=== PATIENT | female | born 1930 | race Caucasian/White ===

== ENCOUNTER 2017-08-27 08:32 | Inpatient (IN) ==
[2017-08-27] MEDS ORDERED: fentaNYL 100 MCG/2 ML VIAL IV PRN (08:58)
[2017-08-27] MEDS ORDERED: FUROSEMIDE 20 MG/2 ML VIAL IV ONE (08:59)
--- NOTE | 2017-08-27 09:01 | Emergency Department Note ---
SOB HPI - General Chief Complaint: Shortness of Breath/Dyspnea Stated Complaint: Short of breath Time Seen by Provider: 08/27/17 08:56 Source: patient, family Mode of arrival: EMS - History of Present Illness This patient returns emergency room after being discharged last night. I saw her with some mild shortness of breath though she seemed very stable last night. She was quite anemic with a hemoglobin in the 7 range. Her primary had started her on iron. I went ahead and gave her a blood transfusion 2 units and some Lasix and she seemed much better after that. However this morning she now feels short of breath with chest pain. This patient really is a Comfort Care only patient. MD Complaint: shortness of breath, chest pain Onset (ago): hour(s) Severity: moderate Consistency/Duration: constant - Related Data Home Medications Medication Instructions Recorded Confirmed Aspirin [Jamal Chewable Aspirin] 81 mg PO HS 08/26/17 08/27/17 Ergocalciferol (Vitamin D2) 4,000 unit PO HS 08/26/17 08/27/17 [Vitamin D2] Folic Acid 1 mg PO HS 08/26/17 08/27/17 Levothyroxine [Synthroid] 50 mcg PO DAILY 08/26/17 08/27/17 Rosuvastatin [Crestor] 10 mg PO HS 08/26/17 08/27/17 amLODIPine [Norvasc] 5 mg PO HS 08/26/17 08/27/17 Allergies Allergy/AdvReac Type Severity Reaction Status Date / Time morphine Allergy Verified 08/27/17 08:38 Review of Systems All systems ED: reviewed and negative except as stated. Past Medical History - Past Medical History [facility] Narrative: Medical History Anemia (Acute) Medical history: Reports: COPD, TIA - Social History smoking status: Current every day smoker Physical Exam Limitations: no limitations General appearance: alert Head: atraumatic, normocephalic Eye: Present: normal appearance ENT: normal exam Neck: Present: normal inspection Chest: Present: normal inspection Respiratory: Present: other (Scattered rhonchi) Cardiovascular: Present: regular rate, normal rhythm, normal heart sounds Abdominal: Present: soft. Absent: distention, tenderness Neurological: Present: alert Psychiatric: Present: normal affect, normal mood Skin: Present: warm, dry, intact Course Vital Signs Temperature 96.9 F L 08/27/17 08:32 Pulse Rate 104 H 08/27/17 08:32 Respiratory Rate 28 H 08/27/17 08:32 Blood Pressure 163/110 08/27/17 08:32 Pulse Oximetry (%) 99 08/27/17 08:32 Temperature 96.9 F L 08/27/17 08:32 Pulse Rate 91 H 08/27/17 10:25 Respiratory Rate 23 H 08/27/17 10:25 Blood Pressure 88/68 08/27/17 10:17 Pulse Oximetry (%) 95 08/27/17 10:25 Shortness of Breath/Dyspnea - MDM Narrative Medical decision making narrative: And has had a change from last night with a rising troponin and BNP. However EKG does not show ischemia. Had a long discussion with the daughter who really wants patient to be admitted Comfort Care only. She just wants palliative comfort measures. I did give the patient some Levaquin as her urine from last night was mildly infected and the chest x-ray was very hard to determine whether was pneumonia fibrosis or heart failure. I discussed the case with the hospitalist and the patient will be admitted to the floor for comfort care only. - Lab Data Lab results reviewed: Yes I reviewed the patient's lab results. Result diagrams: 08/27/17 09:11 08/27/17 09:10 Lab Results 08/27/17 08/27/17 08/27/17 Range/Units 09:10 09:10 09:11 WBC 12.8 H (4.5-11.0) K/mcL RBC 4.71 (4.00-5.20) M/mcL Hgb 12.7 (12.0-15.0) g/dL Hct 40.1 (36.0-48.0) % MCV 85.1 (80.0-100.0) fL MCH 26.9 (26.0-34.0) pg MCHC 31.7 (31.0-36.0) g/dL RDW 18.1 H (11.5-14.5) % Plt Count 369 (140-440) K/mcL MPV 7.9 (7.4-10.4) fL Gran % 88.5 H (38.0-78.0) % Lymph % (Auto) 6.6 L (15.5-49.0) % [place] % (Auto) 4.4 (1.0-12.0) % Eos % (Auto) 0.5 (0.0-7.0) % Baso % (Auto) 0 (0.0-2.0) % Gran # 11.3 H (1.8-8.0) K/mcL Lymph # (Auto) 0.8 L (1.5-4.8) K/mcL [place] # (Auto) 0.6 (0.1-0.9) K/mcL Eos # (Auto) 0.1 (0.0-0.7) K/mcL Baso # (Auto) 0 (0.0-0.3) K/mcL Sodium 140 (133-145) mmol/L Potassium 3.9 (3.3-5.1) mmol/L Chloride 97 (96-108) mmol/L Carbon Dioxide 24 (22-30) mmol/L Anion Gap 19.0 H (8-16) BUN 18 (8-23) mg/dl Creatinine 1.0 (0.6-1.1) mg/dl GFR Calculation 50 Glucose 139 H (70-105) mg/dL Calcium 9.0 (8.6-10.4) mg/dl Total Bilirubin 2.3 H (0.0-1.0) mg/dL AST 41 H (0-37) U/l ALT 13 (0-40) U/l Alkaline Phosphatase 63 (39-117) U/L Troponin T 0.34 H* (0-0.03) ng/ml NT-Pro-B Natriuret Pep 26703.0 H (0-450) pg/ml Total Protein 7.7 (5.9-8.4) gm/dL Albumin 4.4 (3.2-5.2) gm/dL Globulin 3.3 (2.2-3.7) gm/dL Albumin/Globulin Ratio 1.3 (1.0-2.3) Disposition Pt seen by [employer] REPAIRER/PA only: No Clinical Impression: Congestive heart failure, Acute coronary syndrome, Urinary tract infection Disposition: Xfer As Inpt ([facility]) Condition: Undetermined Referrals: Vitaly Brennan ARNP [Primary Care Provider] - Time of Disposition: 10:48
[2017-08-27 10:10] LABS: Basophils # (Auto) 0 K/mcL (0.0-0.3); Basophils % (Auto) 0 % (0.0-2.0); Eosinophils # (Auto) 0.1 K/mcL (0.0-0.7); Eosinophils % (Auto) 0.5 % (0.0-7.0); Granulocytes % (Auto) 88.5 % (38.0-78.0); Lymphocytes # (Auto) 0.8 K/mcL (1.5-4.8); Lymphocytes % (Auto) 6.6 % (15.5-49.0); Mean Cell Volume 85.1 fL (80.0-100.0); Mean Corpuscular HGB Conc 31.7 g/dL (31.0-36.0); Mean Corpuscular Hemoglobin 26.9 pg (26.0-34.0); Monocytes # (Auto) 0.6 K/mcL (0.1-0.9); Monocytes % (Auto) 4.4 % (1.0-12.0); Platelet Count 369 K/mcL (140-440); RBC 4.71 M/mcL (4.00-5.20); Red Cell Distribution Width 18.1 % (11.5-14.5)
[2017-08-27] MEDS ORDERED: LEVOFLOXACIN 750 MG/150 ML BAG IV ONE (10:24)
[2017-08-27 10:25] LABS: ALT/SGPT 13 U/l (0-40); Albumin 4.4 gm/dL (3.2-5.2); Albumin/Globulin Ratio 1.3 (1.0-2.3); Alkaline Phosphatase 63 U/L (39-117); Blood Urea Nitrogen 18 mg/dl (8-23)
[2017-08-27 11:37] LABS: Appearance,Urine CLEAR; Bacteria,Urine 0 /hpf (0); Bilirubin,Urine NEG (NEG); Color,Urine YELLOW; Glucose,Urine (UA) NEGATIVE (NEG); Leukocyte Esterase,Urine NEG /uL (NEG); Mucus,Urine FEW /hpf (0); Nitrate,Urine NEG (NEG); Protein,Urine 100 mg/dL (NEG); Urine Blood 0.03 mg/dL (<0.03); Urine Hyaline Cast 9 /lpf (0-2); Urine RBC 2 /hpf (0-1); Urine Squamous Epithelial Cell < 1 /hpf (0-4); Urine Transitional Epi Cells < 1 /hpf (0-2); Urine WBC 4 /hpf (0-4); Urobilinogen,Urine NEG (NEG)
[2017-08-27] MEDS ORDERED: ONDANSETRON 4 MG/2 ML VIAL IV ONE (11:45)
--- NOTE | 2017-08-27 11:52 | Internal Med History&Physical ---
Medical - H&P: HPI Patient information: Note initiated : 08/27/17 at 11:46 am Service Date, if different from initiated Date: [] Patient: Fanta Moore a 86 y/o F admitted on for Short of breath. Chief Complaint: [] History of present illness: Ms. Moore is a 86 year old female with reported history of COPD, CHF, TIAs, hypertension, peripheral vascular disease, hyperlipidemia, who has dementia and lives with her daughter. Her daughter reports that yesterday afternoon the patient began to grimace and act like she was having chest pain. The daughter kept an eye on her and the patient would only intermittently admit to it. Finally the daughter brought her to the emergency room. She was found to be quite anemic, and Dr. padilla decided to transfuse her to improve her oxygen carrying capacity. She was then discharged home. The daughter says her mom continued to have chest pain on and off all night. She wanted to bring her back to the ER this morning, but the patient refused, so the daughter finally called 911. She says the patient has significant dementia, and has difficulty answering specific questions, but says she did grab her chest a few times and grimace. She says she has had a cough and has seem short of breath at times. She did vomit yesterday after her ER visit. She has had decreased p.o. intake for the last couple of days. Otherwise she is unaware of fever or chills. She says her mother would really not be able to express if she had headaches or dizziness, palpitations, and did not act like she was having stomach upset, diarrhea or constipation or dysuria. ER evaluation on her second visit did show hypotension, fever, leukocytosis, increased troponin. The daughter is quite adamant that her mother does not want any aggressive care, but would like supportive care for a few days to see how she does. If she does not improve, then she believes she and her other family members will want to move towards comfort care. Past medical history: COPD Chronic tobacco use, congestive heart failure, previous TIAs, hypertension Hyperlipidemia Peripheral vascular disease status post femoral bypass Severe dementia Current medications: Amlodipine 5 mg nightly Aspirin 81 mg nightly Vitamin D 4000 units nightly Folate 1 mg nightly Iron plus vitamin C 1 every other day Levothyroxine 50 mcg daily Crestor 10 mg nightly Allergies: Morphine gives her confusion and agitation Family history: The patient's mother had history of stroke. Father's health was unknown. She has some half siblings who may have had lung cancer. A grandmother may have had an SC. Social history: The patient lives with her daughter, who acts as her caregiver. The patient continues to smoke about 1 pack per day, almost continuously since the age of 18. She does not use alcohol or drugs. She drinks lots of coffee. The daughter reports she holds the medical power of senior trial attorney and that the patient has asked for a DNR CODE STATUS. Medical - H&P: Meds Home Medications Medication Instructions Recorded Confirmed Type Aspirin [Jamal Chewable Aspirin] 81 mg PO HS 08/26/17 08/27/17 History Ergocalciferol (Vitamin D2) 4,000 unit PO HS 08/26/17 08/27/17 History [Vitamin D2] Folic Acid 1 mg PO HS 08/26/17 08/27/17 History Levothyroxine [Synthroid] 50 mcg PO DAILY 08/26/17 08/27/17 History Rosuvastatin [Crestor] 10 mg PO HS 08/26/17 08/27/17 History amLODIPine [Norvasc] 5 mg PO HS 08/26/17 08/27/17 History Iron,Carbonyl/Ascorbic Acid [Iron 1 each PO Q2 08/27/17 08/27/17 History 100-Vitamin C Tablet] Allergies Allergy/AdvReac Type Severity Reaction Status Date / Time morphine AdvReac Mild Hallucinati Verified 08/27/17 12:41 ng Medical - H&P: Exam - Constitutional Vitals: Temp Pulse Resp BP Pulse Ox 96.9 F L 90 17 92/76 95 08/27/17 08:32 08/27/17 11:10 08/27/17 11:10 08/27/17 11:02 08/27/17 11:10 On exam, patient is somewhat somnolent. She does follow simple commands, but generally says no to most questions. Head: Normocephalic, atraumatic. Eyes: PERRLA, EOMI, anicteric. Daughter reports patient has minimal vision in her left eye. Regarding previous retinal clot. Ears: TMs and canals are clear. Pharynx: Is clear. Mucosa is dry. Neck: Appears supple, without lymphadenopathy, JVD, thyromegaly. There is a soft left-sided carotid bruit noted. Cardiac exam: Shows regular rate and rhythm with normal S1 and S2. There is a 2 /6 systolic murmur heard along the left lower sternal border. No rubs or gallops are noted. Lungs: Have somewhat decreased breath sounds throughout. Lung exam is a bit difficult as the patient continues to moan while exhaling. Abdomen: Is soft and nontender without obvious masses. Bowel sounds are active. Extremities: Show no cyanosis, clubbing, edema. Neurologic exam: The patient does not appear oriented. Her daughter says she does recognize family members. She is able to answer some questions, but not reliably. She does not appear to have any focal motor deficits. Medical - H&P: Reslt - Labs CBC & Chem 7: 08/27/17 14:51 08/27/17 09:10 Labs: Short CBC 08/27/17 Range/Units 09:11 WBC 12.8 H (4.5-11.0) K/mcL Hgb 12.7 (12.0-15.0) g/dL Hct 40.1 (36.0-48.0) % Plt Count 369 (140-440) K/mcL BMP 08/27/17 09:10 Sodium 140 Potassium 3.9 Chloride 97 Carbon Dioxide 24 BUN 18 Creatinine 1.0 Glucose 139 H Calcium 9.0 Cardiac Enzymes 08/27/17 Range/Units 09:10 Troponin T 0.34 H* (0-0.03) ng/ml Liver Function 08/27/17 Range/Units 09:10 Total Bilirubin 2.3 H (0.0-1.0) mg/dL AST 41 H (0-37) U/l ALT 13 (0-40) U/l Alkaline Phosphatase 63 (39-117) U/L Albumin 4.4 (3.2-5.2) gm/dL Urine 08/27/17 Range/Units 11:04 Urine Color Yellow Urine Appearance Clear Urine pH 5.0 (5.0-9.0) Ur Specific [place] 1.010 (1.000-1.035) Urine Protein 100 A (NEG) mg/dL Urine Glucose (UA) Negative (NEG) mg/dL August 27: CBC after transfusion: Show white blood cell count 12,000, hemoglobin 12, hematocrit 40 Chemistries: Notable for anion gap of 19, glucose 139, total bilirubin 2.3, AST 41 Troponin #2: Is positive at 0.34 Troponin #3 is positive at 0.69 next BNP is elevated at 15,255 Urine culture shows no growth so far. EKG: Appears to show sinus rhythm, left axis deviation, loss of R-wave in V3 ( question lead placement), no obvious acute ischemic changes, but diffuse T-wave flattening August 26: Initial CBC in the ER yesterday, showed hemoglobin of 7.7, hematocrit 25, RDW 18 next Chemistry panel: Was notable for anion gap of 17, glucose 173, normal electrolytes. Troponin was normal at 0.01 next ProBNP was elevated at 4200 Urinalysis: Showed 30 mg of protein, 5 ketones, 25 leukocyte esterase, 14 white blood cells, no bacteria EKG shows sinus arrhythmia, left axis deviation, probable right ventricular hypertrophy. No acute ischemic changes noted. Chest x-ray: Shows moderately severe pulmonary fibrosis, with superimposed infiltrates, question pneumonia versus CHF. Medical - H&P: A/P (1) Pneumonia Current visit: Yes Status: Acute (2) Dementia Current visit: Yes Status: Chronic (3) COPD (chronic obstructive pulmonary disease) Current visit: Yes Status: Chronic (4) Continuous tobacco abuse Current visit: Yes Status: Chronic (5) History of TIA (transient ischemic attack) Current visit: Yes Status: Chronic (6) Hypertension Current visit: Yes Status: Chronic (7) Peripheral vascular disease Current visit: Yes Status: Chronic (8) Anemia Current visit: No Status: Acute (9) Congestive heart failure Current visit: Yes Status: Acute (10) Acute coronary syndrome Current visit: Yes Status: Acute - Narrative A/P Narrative: #1. Cardiac. Patient presents with chest pain and up trending troponins, consistent with acute coronary syndrome. Due to the patient's severe dementia, her daughter really does not want any aggressive cardiac care. She would like medical management here at this hospital, but does not want to transfer the patient to a larger facility or have any cardiac procedures done. Next -Admit to floor, as POA does not want aggressive management. -Continue aspirin. Consider trial of metoprolol, Plavix, lisinopril. -As needed nitroglycerin and Ativan. It sounds like she has a bad reaction to narcotics. -Possible history of CHF. BNP is elevated, so she may have new CHF superimposed on chronic. Add Lasix, lisinopril, beta-josiane, if tolerated. 2. Infectious disease. Pulmonary. Patient does present with mild room air hypoxia, possibly related to COPD but with superimposed infiltrates that could be either CHF, or pneumonia, or both areas she did have mild leukocytosis this morning. -I will start her on Rocephin for empiric coverage, until we sort things out further . -Bronchodilators, oxygen as needed. Pulmonary toilet. -She stabilizes over the next day or so, check echocardiogram to help guide therapy. 3. Nicotine dependence. Offered NicoDerm patch 4. CODE STATUS: DNR. Her daughter has her POA. Her daughter would like to review the patient's condition with other family members, and then might be willing to discuss hospice and comfort care, as the patient would really prefer to return home. The daughter notes she gets frightened when she is taken out of her home environment. 5. If patient does well the next couple of days, consider physical and occupational therapy. 6. Neurologic. Patient has a history of dementia as well as TIAs. - therapies as noted above Today's visit took approximately 60 minutes, to review her case with the ER MD, review test results, interview and examine her, review plan of care with the patient's daughter, and write orders.
[2017-08-27] MEDS ORDERED: ALBUTEROL SULFATE 2.5 MG/3 ML NEBULIZER NEB PRN (11:59)
[2017-08-27] MEDS ORDERED: DOCUSATE SODIUM 100 MG CAPSULE PO PRN (11:59)
[2017-08-27] MEDS ORDERED: cefTRIAXone 1 GM in DEXTROSE 5% IN WATER 50 ML IV SCH (11:59)
[2017-08-27] MEDS ORDERED: HYDROmorphone 2 MG/ML SYRINGE IV PRN (11:59)
[2017-08-27] MEDS ORDERED: MAGNESIUM HYDROXIDE 30 ML ORAL.SUSP PO PRN (11:59)
[2017-08-27] MEDS ORDERED: ACETAMINOPHEN 325 MG TABLET PO PRN (11:59)
[2017-08-27] MEDS ORDERED: CALCIUM CARBONATE 500 MG TAB.CHEW CHEWED PRN (11:59)
[2017-08-27] MEDS ORDERED: NALOXONE HCL 0.4 MG/ML VIAL IV PRN (11:59)
[2017-08-27] MEDS ORDERED: CLOPIDOGREL 75 MG TABLET PO ONE (14:50)
[2017-08-27] MEDS ORDERED: NITROGLYCERIN 0.4 MG TAB.SUBL SL PRN (14:52)
[2017-08-27 15:27] LABS: Basophils # (Auto) 0 K/mcL (0.0-0.3); Basophils % (Auto) 0.1 % (0.0-2.0); Eosinophils # (Auto) 0 K/mcL (0.0-0.7); Eosinophils % (Auto) 0.2 % (0.0-7.0); Granulocytes % (Auto) 84.1 % (38.0-78.0); Lymphocytes % (Auto) 9.5 % (15.5-49.0); Mean Cell Volume 85.2 fL (80.0-100.0); Mean Corpuscular HGB Conc 31.8 g/dL (31.0-36.0); Monocytes # (Auto) 0.6 K/mcL (0.1-0.9); Monocytes % (Auto) 6.1 % (1.0-12.0); Platelet Count 292 K/mcL (140-440); RBC 4.13 M/mcL (4.00-5.20); Red Cell Distribution Width 17.9 % (11.5-14.5)
[2017-08-27] MEDS: cefTRIAXone 1 GM VIAL IV SCH (15:32)
[2017-08-27] MEDS: 0.9 % SODIUM CHLORIDE 10 ML SYRINGE IV SCH ×2 (15:32→20:32)
[2017-08-27] MEDS: NICOTINE 21 MG PATCH TOPICAL SCH (19:18)
[2017-08-27] MEDS: ASPIRIN 81 MG TAB.CHEW PO SCH (20:31)
[2017-08-27] MEDS: FOLIC ACID 1 MG TABLET PO SCH (20:31)
[2017-08-27] MEDS: VITAMIN D3 5,000 UNIT CAPSULE PO SCH (20:31)
[2017-08-27] MEDS: ATORVASTATIN 20 MG TABLET PO SCH (20:31)
[2017-08-27] MEDS: LORazepam 2 MG/ML VIAL IV PRN (20:32)
[2017-08-27] MEDS: HEPARIN 5,000 UNIT/ML VIAL SQ SCH (20:32)
[2017-08-28] MEDS: ONDANSETRON 4 MG/2 ML VIAL IV PRN ×2 (01:33→07:27)
[2017-08-28] MEDS: LORazepam 2 MG/ML VIAL IV PRN (04:15)
[2017-08-28 06:32] LABS: ALT/SGPT 10 U/l (0-40); Albumin 3.3 gm/dL (3.2-5.2); Albumin/Globulin Ratio 1.2 (1.0-2.3); Alkaline Phosphatase 49 U/L (39-117); Bilirubin,Direct < 0.2 mg/dL (0.0-0.3); Blood Urea Nitrogen 25 mg/dl (8-23); Gamma Glutamyl Transpeptidase 11 U/L (5-36); Magnesium 2.1 mg/dL (1.6-2.5); Uric Acid 6.5 mg/dL (2.5-8.0)
[2017-08-28] MEDS: NICOTINE 21 MG PATCH TOPICAL SCH (10:01)
[2017-08-28] MEDS: HEPARIN 5,000 UNIT/ML VIAL SQ SCH ×2 (10:02→20:20)
[2017-08-28] MEDS: 0.9 % SODIUM CHLORIDE 10 ML SYRINGE IV SCH ×3 (10:02→20:21)
[2017-08-28] MEDS: LEVOTHYROXINE 50 MCG TABLET PO SCH (10:03)
[2017-08-28] MEDS: cefTRIAXone 1 GM VIAL IV SCH (11:17)
--- NOTE | 2017-08-28 13:46 | Internal Med Progress Note ---
Medical - PN: Subj Patient information: Note initiated : 08/28/17 at 1:46 pm Service Date, if different from initiated Date: [] Patient: Fanta Moore 86 y/o F admitted on 08/27/17 for Short of breath. Chief Complaint: [] Interval history: August 27, 2017: History of present illness: Ms. Moore is a 86 year old female with reported history of COPD, CHF, TIAs, hypertension, peripheral vascular disease, hyperlipidemia, who has dementia and lives with her daughter. Her daughter reports that yesterday afternoon the patient began to grimace and act like she was having chest pain. The daughter kept an eye on her and the patient would only intermittently admit to it. Finally the daughter brought her to the emergency room. She was found to be quite anemic, and Dr. padilla decided to transfuse her to improve her oxygen carrying capacity. She was then discharged home. The daughter says her mom continued to have chest pain on and off all night. She wanted to bring her back to the ER this morning, but the patient refused, so the daughter finally called 911. She says the patient has significant dementia, and has difficulty answering specific questions, but says she did grab her chest a few times and grimace. She says she has had a cough and has seem short of breath at times. She did vomit yesterday after her ER visit. She has had decreased p.o. intake for the last couple of days. Otherwise she is unaware of fever or chills. She says her mother would really not be able to express if she had headaches or dizziness, palpitations, and did not act like she was having stomach upset, diarrhea or constipation or dysuria. ER evaluation on her second visit did show hypotension, fever, leukocytosis, increased troponin. The daughter is quite adamant that her mother does not want any aggressive care, but would like supportive care for a few days to see how she does. If she does not improve, then she believes she and her other family members will want to move towards comfort care. August 28: The patient had a rather rough night, and did wake up to vomit once. She has had some intermittent chest pain. She also had anxiety, which responded to lorazepam, but it seemed to make her very sleepy. This morning a half dose Ativan seemed to help a little more. By the time I saw her this morning, she was awake and alert. She had several family members in the room, and seemed to recognize everyone and was smiling and talking to them. Her history is quite unreliable, but she does deny chest pain or significant cough. She says she is only mildly short of breath. She denies GI or symptoms. - Constitutional Vitals: Vital Signs Temp Pulse Resp BP Pulse Ox 97.4 F 79 16 109/67 95 08/28/17 03:50 08/28/17 03:50 08/28/17 07:41 08/28/17 03:50 08/28/17 07:41 Period Temp Pulse Resp BP Sys/Glynn Pulse Ox Last 24 Hr 97.4 F-98.3 F 79-96 16-20 88-109/47-72 81-95 Intake and Output 08/27/17 08/28/17 08/28/17 21:59 05:59 13:59 Intake Total 120 / 120 300 / 300 Balance 120 / 120 300 / 300 Weight 93 lb Intake & Output: Intake & Output 08/27/17 08/28/17 08/28/17 21:59 05:59 13:59 Intake Total 120 / 120 300 / 300 Balance 120 / 120 300 / 300 Weight 93 lb Intake: Oral 120 / 120 300 / 300 Other: # Voids 1 On exam, she is awake and alert, and is smiling and talking. Neck shows no obvious JVD. Cardiac exam shows regular rate and rhythm. Lungs: Have markedly decreased breath sounds throughout, with scattered crackles. Abdomen is soft and nontender. Extremities show no edema. Medical - PN: Obj Da - Labs CBC & Chem 7: 08/27/17 14:51 08/29/17 04:19 Labs: Abnormal Lab Results 08/28/17 08/27/17 08/27/17 04:03 14:51 14:51 WBC Hgb 11.2 L Hct 35.2 L RDW 17.9 H Gran % 84.1 H Lymph % (Auto) 9.5 L Gran # 8.9 H Lymph # (Auto) 1.0 L Anion Gap BUN 25 H Creatinine 1.4 H Glucose 117 H Total Bilirubin AST Lactate Dehydrogenase 291 H Troponin T 0.69 H* NT-Pro-B Natriuret Pep Urine Protein Urine Occult Blood Urine RBC Hyaline Casts 08/27/17 08/27/17 08/27/17 11:04 09:11 09:10 WBC 12.8 H Hgb Hct RDW 18.1 H Gran % 88.5 H Lymph % (Auto) 6.6 L Gran # 11.3 H Lymph # (Auto) 0.8 L Anion Gap 19.0 H BUN Creatinine Glucose 139 H Total Bilirubin 2.3 H AST 41 H Lactate Dehydrogenase Troponin T NT-Pro-B Natriuret Pep 17329.0 H Urine Protein 100 A Urine Occult Blood 0.03 A Urine RBC 2 H Hyaline Casts 9 H 08/27/17 09:10 WBC Hgb Hct RDW Gran % Lymph % (Auto) Gran # Lymph # (Auto) Anion Gap BUN Creatinine Glucose Total Bilirubin AST Lactate Dehydrogenase Troponin T 0.34 H* NT-Pro-B Natriuret Pep Urine Protein Urine Occult Blood Urine RBC Hyaline Casts August 28: Chemistry panel: Shows BUN of 25 with creatinine of 1.4, increased. August 27: Repeat CBC at 2:50 PM: White blood cell count is 10,000, hemoglobin 11, hematocrit 35, platelets 292,000. Granulocyte count is 8900. CBC after transfusion: Show white blood cell count 12,000, hemoglobin 12, hematocrit 40 Chemistries: Notable for anion gap of 19, glucose 139, total bilirubin 2.3, AST 41 Troponin #2: Is positive at 0.34 Troponin #3 is positive at 0.69 BNP is elevated at 15,255 Urine culture shows no growth so far. EKG: Appears to show sinus rhythm, left axis deviation, loss of R-wave in V3 ( question lead placement), no obvious acute ischemic changes, but diffuse T-wave flattening August 26: Initial CBC in the ER yesterday, showed hemoglobin of 7.7, hematocrit 25, RDW 18 next Chemistry panel: Was notable for anion gap of 17, glucose 173, normal electrolytes. Troponin was normal at 0.01 next ProBNP was elevated at 4200 Urinalysis: Showed 30 mg of protein, 5 ketones, 25 leukocyte esterase, 14 white blood cells, no bacteria EKG shows sinus arrhythmia, left axis deviation, probable right ventricular hypertrophy. No acute ischemic changes noted. Chest x-ray: Shows moderately severe pulmonary fibrosis, with superimposed infiltrates, question pneumonia versus CHF. Meds: Medications Acetaminophen (Tylenol) 650 mg PO Q6HP PRN PRN Reason: PAIN/FEVER > 101 Albuterol Sulfate (Ventolin) 2.5 mg NEB Q2HP PRN PRN Reason: Shortness Of Breath Aspirin (Aspirin) 81 mg PO HS [facility] Last Admin: 08/27/17 20:31 Dose: 81 mg Atorvastatin Calcium (Lipitor) 20 mg PO HS [facility] Last Admin: 08/27/17 20:31 Dose: 20 mg Calcium Carbonate/Glycine (Tums) 1,000 mg CHEWED Q4HP PRN PRN Reason: Dyspepsia Ceftriaxone Sodium (Rocephin) 1 gm IV Q24H [facility] Last Admin: 08/28/17 11:17 Dose: 1 gm Docusate Sodium (Colace) 100 mg PO BID PRN PRN Reason: Constipation Folic Acid (Folic Acid) 1 mg PO HS [facility] Last Admin: 08/27/17 20:31 Dose: 1 mg Heparin Sodium (Porcine) (Heparin) 5,000 unit SQ Q12 [facility] Last Admin: 08/28/17 10:02 Dose: Not Given Hydromorphone HCl (Dilaudid) 0.5 mg IV Q2HP PRN PRN Reason: PAIN LEVEL > 6 Levothyroxine Sodium (Synthroid) 50 mcg PO DAILY [facility] Last Admin: 08/28/17 10:03 Dose: Not Given Lorazepam (Ativan) 0.5 mg IV Q2HP PRN PRN Reason: ANXIETY/SEDATION Last Admin: 08/28/17 04:15 Dose: 0.25 mg Magnesium Hydroxide (Milk Of Magnesia) 30 ml PO DAILYP PRN PRN Reason: Constipation Naloxone HCl (Narcan) 0.1 mg IV Q2MIN PRN PRN Reason: Opiate Reversal Nicotine (Nicoderm) 21 mg TOPICAL DAILY@1000 [facility] Last Admin: 08/28/17 10:01 Dose: 21 mg Nitroglycerin (Nitrostat) 0.4 mg SL Q5M PRN PRN Reason: Chest Pain Ondansetron HCl (Zofran) 4 mg IV Q6HP PRN PRN Reason: Nausea And Vomiting Last Admin: 08/28/17 07:27 Dose: 4 mg Sodium Chloride (Saline Flush) 10 ml IV Q8 [facility] Last Admin: 08/28/17 10:02 Dose: 10 ml Vitamin D (Vitamin D3) 5,000 unit PO [facility] Last Admin: 08/27/17 20:31 Dose: 5,000 unit Medical - PN: A/P - Time Spent With Patient Total time spent is greater than 50% in coordination of care (as documented) at patient's floor/unit and/or counseling patient: 25 - 35 minutes (1) Pneumonia Status: Acute Current Visit: Yes (2) Dementia Status: Chronic Current Visit: Yes (3) COPD (chronic obstructive pulmonary disease) Status: Chronic Current Visit: Yes (4) Continuous tobacco abuse Status: Chronic Current Visit: Yes (5) History of TIA (transient ischemic attack) Status: Chronic Current Visit: Yes (6) Hypertension Status: Chronic Current Visit: Yes (7) Peripheral vascular disease Status: Chronic Current Visit: Yes (8) Anemia Status: Acute Current Visit: No (9) Congestive heart failure Status: Acute Current Visit: Yes (10) Acute coronary syndrome Status: Acute Current Visit: Yes - Narrative A/P Narrative: #1. Cardiac. Patient presents with chest pain and up trending troponins, consistent with acute coronary syndrome. Due to the patient's severe dementia, her daughter really does not want any aggressive cardiac care. She would like medical management here at this hospital, but does not want to transfer the patient to a larger facility or have any cardiac procedures done. -Admitted to floor, as POA does not want aggressive management. -Continue aspirin. Consider trial of metoprolol, Plavix, lisinopril. -As needed nitroglycerin and Ativan. It sounds like she has a bad reaction to narcotics. -The patient is quite hypotensive this evening. It would not be unexpected if she had acute heart failure due to acute ischemia. The family is content to manage medically on the floor at this time. If she stabilizes enough, they would like to take her home. -Possible history of CHF. BNP is elevated, so she may have new CHF superimposed on chronic. Add Lasix, lisinopril, beta-josiane, if tolerated. 2. Infectious disease. Pulmonary. Patient does present with mild room air hypoxia, possibly related to COPD but with superimposed infiltrates that could be either CHF, or pneumonia, or both areas she did have mild leukocytosis this morning. -Started her on Rocephin for empiric coverage, until we sort things out further . -Bronchodilators, oxygen as needed. Pulmonary toilet. -She stabilizes over the next day or so, check echocardiogram to help guide therapy. 3. Nicotine dependence. Offered NicoDerm patch 4. CODE STATUS: DNR. Her daughter has her POA. Her daughter would like to review the patient's condition with other family members, and then might be willing to discuss hospice and comfort care, as the patient would really prefer to return home. The daughter notes she gets frightened when she is taken out of her home environment. 5. If patient does well the next couple of days, consider physical and occupational therapy. 6. Neurologic. Patient has a history of dementia as well as TIAs. - therapies as noted above. I had a fairly long discussion today with the patient's daughter/POA, and numerous other family members . We discussed that the patient seemed to be doing rather well this morning, but things could still go either way. They were all content to focus on supportive care and keeping her comfortable.
[2017-08-28] MEDS ORDERED: HYDROmorphone 2 MG/ML SYRINGE IV PRN (15:41)
[2017-08-28] MEDS ORDERED: CLOPIDOGREL 75 MG TABLET PO ONE (15:45)
[2017-08-28] MEDS: ATORVASTATIN 20 MG TABLET PO SCH (20:20)
[2017-08-28] MEDS: ASPIRIN 81 MG TAB.CHEW PO SCH (20:20)
[2017-08-28] MEDS: FOLIC ACID 1 MG TABLET PO SCH (20:20)
[2017-08-28] MEDS: VITAMIN D3 5,000 UNIT CAPSULE PO SCH (20:21)
[2017-08-29] MEDS: LORazepam 2 MG/ML VIAL IV PRN (04:29)
[2017-08-29] MEDS: 0.9 % SODIUM CHLORIDE 10 ML SYRINGE IV SCH ×3 (04:30→20:15)
[2017-08-29 06:21] LABS: ALT/SGPT 10 U/l (0-40); Albumin 3.4 gm/dL (3.2-5.2); Albumin/Globulin Ratio 1.4 (1.0-2.3); Alkaline Phosphatase 47 U/L (39-117); Bilirubin,Direct < 0.2 mg/dL (0.0-0.3); Blood Urea Nitrogen 30 mg/dl (8-23); Gamma Glutamyl Transpeptidase 11 U/L (5-36); Magnesium 2.2 mg/dL (1.6-2.5); Uric Acid 7.2 mg/dL (2.5-8.0)
[2017-08-29] MEDS: LEVOTHYROXINE 50 MCG TABLET PO SCH (10:32)
[2017-08-29] MEDS: cefTRIAXone 1 GM VIAL IV SCH (10:33)
[2017-08-29] MEDS: NICOTINE 21 MG PATCH TOPICAL SCH (10:33)
[2017-08-29] MEDS: CLOPIDOGREL 75 MG TABLET PO SCH (10:33)
[2017-08-29] MEDS: HEPARIN 5,000 UNIT/ML VIAL SQ SCH ×2 (10:33→20:20)
--- NOTE | 2017-08-29 12:14 | Discharge Summary ---
Medical - DS: Prov Patient information: Note initiated : 08/29/17 at 12:14 pm Service Date, if different from initiated Date: [] Patient: Fanta Moore 86 y/o F admitted on 08/27/17 for Short of Breath/CHF, Pneumonia. Chief Complaint: [] Date of admission: 08/27/17 12:16 Primary care physician: Vitaly Brennan Consults: 08/27/17 10:45 Consult to Physician [CONS] Stat Comment: Consulting Provider: Riddhi Tong Reason For Exam: Physician to Consult Medical - DS: Meds - Discharge Medications Active and Home Medications: Home Medications Aspirin [Jamal Chewable Aspirin] 81 mg PO HS 08/26/17 [History Confirmed Last Taken Unknown] Ergocalciferol (Vitamin D2) [Vitamin D2] 4,000 unit PO HS 08/26/17 [History Confirmed 08/27/17 Last Taken Unknown] Folic Acid 1 mg PO HS 08/26/17 [History Confirmed 08/27/17 Last Taken Unknown] Levothyroxine [Synthroid] 50 mcg PO DAILY 08/26/17 [History Confirmed 08/27/17 Last Taken Unknown] Rosuvastatin [Crestor] 10 mg PO HS 08/26/17 [History Confirmed 08/27/17 Last Taken Unknown] amLODIPine [Norvasc] 5 mg PO HS 08/26/17 [History Confirmed 08/27/17 Last Taken Unknown] Iron,Carbonyl/Ascorbic Acid [Iron 100-Vitamin C Tablet] 1 each PO Q2 08/27/17 [ History Confirmed 08/27/17 Last Taken Unknown] Medical - DS: Hosp Hospital course: Mr. Moore is a 86 year old F - Time Spent with Patient Total time spent providing and/or coordinating discharge services: Medical - DS: Exam - Constitutional Vitals: Vital Signs Temp Pulse Pulse Resp BP Pulse Ox 08/29/17 07:23 78 12 96 08/29/17 03:45 98.4 F 91 H 18 88/59 95 08/29/17 00:00 16 08/28/17 20:35 98 08/28/17 19:40 97.5 F 77 18 78/53 99 08/28/17 15:56 98.4 F 80/58 Intake and Output 08/28/17 08/29/17 08/29/17 21:59 05:59 13:59 Intake Total 100 / 100 300 / 300 Output Total 150 / 150 250 / 250 Balance -50 / -50 50 / 50 Intake: Oral 100 / 100 300 / 300 Output: Void Amount 150 / 150 250 / 250 Other: Meal cup of pears Percent of Meal Consumed 75% Feeding Ability Total Assistance Weight 93 lb Medical - DS: Data Labs on day of discharge: Labs from last 24 hours 08/29/17 04:19 Sodium 141 Potassium 4.1 Chloride 102 Carbon Dioxide 27 Anion Gap 12.0 BUN 30 H Creatinine 1.1 GFR Calculation 45 Glucose 97 Uric Acid 7.2 Calcium 8.9 Phosphorus 3.8 Magnesium 2.2 Total Bilirubin 0.3 Direct Bilirubin < 0.2 GGT 11 AST 23 ALT 10 Alkaline Phosphatase 47 Lactate Dehydrogenase 252 H Total Protein 5.9 Albumin 3.4 Globulin 2.5 Albumin/Globulin Ratio 1.4 Triglycerides 88 Medical - DS: A/P - Problem Maintenance (1) Pneumonia Status: Acute (2) Dementia Status: Chronic (3) COPD (chronic obstructive pulmonary disease) Status: Chronic (4) Continuous tobacco abuse Status: Chronic (5) History of TIA (transient ischemic attack) Status: Chronic (6) Hypertension Status: Chronic (7) Peripheral vascular disease Status: Chronic (8) Anemia Status: Acute (9) Congestive heart failure Status: Acute (10) Acute coronary syndrome Status: Acute - Follow up Plan Follow up with: Vitaly Brennan ARNP [Primary Care Provider] - Prognosis: Undetermined
--- NOTE | 2017-08-29 14:14 | Internal Med Progress Note ---
Medical - PN: Subj Patient information: Note initiated : 08/29/17 at 2:11 pm Service Date, if different from initiated Date: [] Patient: Fanta Moore 86 y/o F admitted on 08/27/17 for Short of Breath/CHF, Pneumonia. Chief Complaint: [] Interval history: August 27, 2017: History of present illness: Ms. Moore is a 86 year old female with reported history of COPD, CHF, TIAs, hypertension, peripheral vascular disease, hyperlipidemia, who has dementia and lives with her daughter. Her daughter reports that yesterday afternoon the patient began to grimace and act like she was having chest pain. The daughter kept an eye on her and the patient would only intermittently admit to it. Finally the daughter brought her to the emergency room. She was found to be quite anemic, and Dr. padilla decided to transfuse her to improve her oxygen carrying capacity. She was then discharged home. The daughter says her mom continued to have chest pain on and off all night. She wanted to bring her back to the ER this morning, but the patient refused, so the daughter finally called 911. She says the patient has significant dementia, and has difficulty answering specific questions, but says she did grab her chest a few times and grimace. She says she has had a cough and has seem short of breath at times. She did vomit yesterday after her ER visit. She has had decreased p.o. intake for the last couple of days. Otherwise she is unaware of fever or chills. She says her mother would really not be able to express if she had headaches or dizziness, palpitations, and did not act like she was having stomach upset, diarrhea or constipation or dysuria. ER evaluation on her second visit did show hypotension, fever, leukocytosis, increased troponin. The daughter is quite adamant that her mother does not want any aggressive care, but would like supportive care for a few days to see how she does. If she does not improve, then she believes she and her other family members will want to move towards comfort care. August 28: The patient had a rather rough night, and did wake up to vomit once. She has had some intermittent chest pain. She also had anxiety, which responded to lorazepam, but it seemed to make her very sleepy. This morning a half dose Ativan seemed to help a little more. By the time I saw her this morning, she was awake and alert. She had several family members in the room, and seemed to recognize everyone and was smiling and talking to them. Her history is quite unreliable, but she does deny chest pain or significant cough. She says she is only mildly short of breath. She denies GI or symptoms. August 29: The patient has not had much change in status overnight. She has continued to be somewhat hypotensive. She intermittently has chest discomfort and/or anxiety , which seems to respond to very low-dose Ativan. Her dementia is severe enough , that her history really is not reliable. She has had numerous family members in and out of her room. Today, her oldest son is here, and is against the idea of hospice care, and would like the patient to stay in the hospital. However the daughter who has the POA, has been reviewing with other family members, and most of them agree that they would rather take the patient home so that she can be in familiar surroundings. Ultimately, it sounds like the family did agree to take the patient home with home hospice. Unfortunately, home hospice is too busy to admit her today, so would not be available until tomorrow. The family would like the patient to stay here until they have hospice available to back them up at home. There is still declining any further blood tests or x-rays to reassess the patient's status. The patient says she feels all right. She thinks she might be short of breath but does not seem sure. She does not report chest pain or abdominal pain. - Constitutional Vitals: Vital Signs Temp Pulse Resp BP Pulse Ox 98.4 F 78 12 88/59 96 08/29/17 03:45 08/29/17 07:23 08/29/17 07:23 08/29/17 03:45 08/29/17 07:23 Period Temp Pulse Resp BP Sys/Glynn Pulse Ox Last 24 Hr 97.5 F-98.4 F 77-91 12-18 78-88/53-59 95-99 Intake and Output 08/29/17 08/29/17 08/29/17 05:59 13:59 21:59 Intake Total 300 / 300 250 / 250 Output Total 250 / 250 Balance 50 / 50 250 / 250 Intake & Output: Intake & Output 08/29/17 08/29/17 08/29/17 05:59 13:59 21:59 Intake Total 300 / 300 250 / 250 Output Total 250 / 250 Balance 50 / 50 250 / 250 Intake: Oral 300 / 300 250 / 250 Output: Void Amount 250 / 250 Other: Meal cup of pears Percent of Meal Consumed 75% Feeding Ability Total Assistance She is awake and alert and in no acute distress. Neck is supple without obvious JVD. Cardiac exam shows regular rate and rhythm. Lungs show markedly decreased breath sounds throughout, without obvious wheezes. There may be a few scattered crackles. Abdomen is soft and nontender. Extremities show no edema. Neurologic: The patient is awake and alert, calm and cooperative, but is extremely forgetful. Medical - PN: Obj Da - Labs CBC & Chem 7: 08/27/17 14:51 08/29/17 04:19 Labs: Abnormal Lab Results 08/29/17 08/28/17 08/27/17 04:19 04:03 14:51 WBC Hgb Hct RDW Gran % Lymph % (Auto) Gran # Lymph # (Auto) Anion Gap BUN 30 H 25 H Creatinine 1.4 H Glucose 117 H Total Bilirubin AST Lactate Dehydrogenase 252 H 291 H Troponin T 0.69 H* NT-Pro-B Natriuret Pep Urine Protein Urine Occult Blood Urine RBC Hyaline Casts 08/27/17 08/27/17 08/27/17 14:51 11:04 09:11 WBC 12.8 H Hgb 11.2 L Hct 35.2 L RDW 17.9 H 18.1 H Gran % 84.1 H 88.5 H Lymph % (Auto) 9.5 L 6.6 L Gran # 8.9 H 11.3 H Lymph # (Auto) 1.0 L 0.8 L Anion Gap BUN Creatinine Glucose Total Bilirubin AST Lactate Dehydrogenase Troponin T NT-Pro-B Natriuret Pep Urine Protein 100 A Urine Occult Blood 0.03 A Urine RBC 2 H Hyaline Casts 9 H 08/27/17 08/27/17 09:10 09:10 WBC Hgb Hct RDW Gran % Lymph % (Auto) Gran # Lymph # (Auto) Anion Gap 19.0 H BUN Creatinine Glucose 139 H Total Bilirubin 2.3 H AST 41 H Lactate Dehydrogenase Troponin T 0.34 H* NT-Pro-B Natriuret Pep 64188.0 H Urine Protein Urine Occult Blood Urine RBC Hyaline Casts August 28: Chemistry panel: Shows BUN of 25 with creatinine of 1.4, increased. August 27: Repeat CBC at 2:50 PM: White blood cell count is 10,000, hemoglobin 11, hematocrit 35, platelets 292,000. Granulocyte count is 8900. CBC after transfusion: Show white blood cell count 12,000, hemoglobin 12, hematocrit 40 Chemistries: Notable for anion gap of 19, glucose 139, total bilirubin 2.3, AST 41 Troponin #2: Is positive at 0.34 Troponin #3 is positive at 0.69 BNP is elevated at 15,255 Urine culture shows no growth so far. EKG: Appears to show sinus rhythm, left axis deviation, loss of R-wave in V3 ( question lead placement), no obvious acute ischemic changes, but diffuse T-wave flattening August 26: Initial CBC in the ER yesterday, showed hemoglobin of 7.7, hematocrit 25, RDW 18 next Chemistry panel: Was notable for anion gap of 17, glucose 173, normal electrolytes. Troponin was normal at 0.01 next ProBNP was elevated at 4200 Urinalysis: Showed 30 mg of protein, 5 ketones, 25 leukocyte esterase, 14 white blood cells, no bacteria EKG shows sinus arrhythmia, left axis deviation, probable right ventricular hypertrophy. No acute ischemic changes noted. Chest x-ray: Shows moderately severe pulmonary fibrosis, with superimposed infiltrates, question pneumonia versus CHF. Meds: Medications Acetaminophen (Tylenol) 650 mg PO Q6HP PRN PRN Reason: PAIN/FEVER > 101 Albuterol Sulfate (Ventolin) 2.5 mg NEB Q2HP PRN PRN Reason: Shortness Of Breath Aspirin (Aspirin) 81 mg PO HS [facility] Last Admin: 08/28/17 20:20 Dose: 81 mg Atorvastatin Calcium (Lipitor) 20 mg PO HS [facility] Last Admin: 08/28/17 20:20 Dose: 20 mg Calcium Carbonate/Glycine (Tums) 1,000 mg CHEWED Q4HP PRN PRN Reason: Dyspepsia Ceftriaxone Sodium (Rocephin) 1 gm IV Q24H [facility] Last Admin: 08/29/17 10:33 Dose: 1 gm Clopidogrel Bisulfate (Plavix) 75 mg PO DAILY [facility] Last Admin: 08/29/17 10:33 Dose: 75 mg Docusate Sodium (Colace) 100 mg PO BID PRN PRN Reason: Constipation Folic Acid (Folic Acid) 1 mg PO HS [facility] Last Admin: 08/28/17 20:20 Dose: 1 mg Heparin Sodium (Porcine) (Heparin) 5,000 unit SQ Q12 [facility] Last Admin: 08/29/17 10:33 Dose: Not Given Hydromorphone HCl (Dilaudid) 0.25 mg IV Q2HP PRN PRN Reason: PAIN LEVEL > 6 Levothyroxine Sodium (Synthroid) 50 mcg PO DAILY [facility] Last Admin: 08/29/17 10:32 Dose: 50 mcg Lorazepam (Ativan) 0.25 mg IV Q2HP PRN PRN Reason: ANXIETY/SEDATION Last Admin: 08/29/17 04:29 Dose: 0.25 mg Magnesium Hydroxide (Milk Of Magnesia) 30 ml PO DAILYP PRN PRN Reason: Constipation Naloxone HCl (Narcan) 0.1 mg IV Q2MIN PRN PRN Reason: Opiate Reversal Nicotine (Nicoderm) 21 mg TOPICAL DAILY@1000 [facility] Last Admin: 08/29/17 10:33 Dose: 21 mg Nitroglycerin (Nitrostat) 0.4 mg SL Q5M PRN PRN Reason: Chest Pain Ondansetron HCl (Zofran) 4 mg IV Q4HP PRN PRN Reason: Nausea And Vomiting Sodium Chloride (Saline Flush) 10 ml IV Q8 [facility] Last Admin: 08/29/17 04:30 Dose: 10 ml Vitamin D (Vitamin D3) 5,000 unit PO HS [facility] Last Admin: 08/28/17 20:21 Dose: 5,000 unit Medical - PN: A/P - Time Spent With Patient Total time spent is greater than 50% in coordination of care (as documented) at patient's floor/unit and/or counseling patient: (1) Pneumonia Status: Acute Current Visit: Yes (2) Dementia Status: Chronic Current Visit: Yes (3) COPD (chronic obstructive pulmonary disease) Status: Chronic Current Visit: Yes (4) Continuous tobacco abuse Status: Chronic Current Visit: Yes (5) History of TIA (transient ischemic attack) Status: Chronic Current Visit: Yes (6) Hypertension Status: Chronic Current Visit: Yes (7) Peripheral vascular disease Status: Chronic Current Visit: Yes (8) Anemia Status: Acute Current Visit: No (9) Congestive heart failure Status: Acute Current Visit: Yes (10) Acute coronary syndrome Status: Acute Current Visit: Yes - Narrative A/P Narrative: #1. Cardiac. Patient presents with chest pain and up trending troponins, consistent with acute coronary syndrome. Due to the patient's severe dementia, her daughter really does not want any aggressive cardiac care. She would like medical management here at this hospital, but does not want to transfer the patient to a larger facility or have any cardiac procedures done. -Admitted to floor, as POA does not want aggressive management. -Continue aspirin. Plavix. Patient's blood pressure has been too low to institute metoprolol or lisinopril. -As needed nitroglycerin and Ativan. It sounds like she has a bad reaction to narcotics. -The patient is quite hypotensive . It would not be unexpected if she had acute heart failure due to acute ischemia. The family is content to manage medically on the floor at this time. If she stabilizes enough, they would like to take her home. They did meet with case management today and reviewed hospice services. They would like to go home with home hospice, but hospice is not available to open the case until tomorrow. In the meantime we will try to get home O2 and home nebulizer treatments set up. She will need to go home with sublingual nitroglycerin and liquid Ativan. It does not sound like she would tolerate any narcotics. -Possible history of CHF. BNP is elevated, so she may have new CHF superimposed on chronic. Add Lasix, lisinopril, beta-josiane, if blood pressure improves enough to tolerate. 2. Infectious disease. Pulmonary. Patient does present with mild room air hypoxia, possibly related to COPD but with superimposed infiltrates that could be either CHF, or pneumonia, or both areas she did have mild leukocytosis this morning. -Started her on Rocephin for empiric coverage, until we sort things out further . -Bronchodilators, oxygen as needed. Pulmonary toilet. She could be switched to oral antibiotics at discharge, if the family would like. 3. Nicotine dependence. Offered NicoDerm patch 4. CODE STATUS: DNR. Her daughter has her POA. Her daughter has reviewed the patient's condition with other family members, and it sounds like most of them have agreed to hospice care. 6. Neurologic. Patient has a history of dementia as well as TIAs. - therapies as noted above. I had a discussion today with the patient's son and other numerous other family members . We discussed that the patient seemed to be doing rather well this morning, but things could still go either way. All but the son were content to focus on supportive care and keeping her comfortable. It sounds like the son is willing to accept the decision of the POA and in general of the group.
[2017-08-29] MEDS: ASPIRIN 81 MG TAB.CHEW PO SCH (20:16)
[2017-08-29] MEDS: FOLIC ACID 1 MG TABLET PO SCH (20:20)
[2017-08-29] MEDS: ATORVASTATIN 20 MG TABLET PO SCH (20:20)
[2017-08-29] MEDS: VITAMIN D3 5,000 UNIT CAPSULE PO SCH (20:21)
[2017-08-29] MEDS ORDERED: NITROGLYCERIN 1 GM OINT.TOP TD ONE (20:44)
[2017-08-29] MEDS: morphine 20 MG/ML ORAL.CONC PO PRN (23:20)
[2017-08-29] MEDS ORDERED: morphine 20 MG/ML ORAL.CONC ONE (23:26)
[2017-08-29] MEDS: ONDANSETRON 4 MG/2 ML VIAL IV PRN (23:33)
[2017-08-30] MEDS: LORazepam 2 MG/ML VIAL IV PRN ×2 (03:09→11:52)
[2017-08-30] MEDS: 0.9 % SODIUM CHLORIDE 10 ML SYRINGE IV SCH (05:23)
[2017-08-30] MEDS: morphine 20 MG/ML ORAL.CONC PO PRN ×2 (07:42→10:49)
[2017-08-30] MEDS: ONDANSETRON 4 MG/2 ML VIAL IV PRN (07:42)
[2017-08-30] MEDS: HEPARIN 5,000 UNIT/ML VIAL SQ SCH (07:47)
--- NOTE | 2017-08-30 10:06 | Discharge Summary ---
Medical - DS: Prov Patient information: Note initiated : 08/30/17 at 9:59 am Service Date, if different from initiated Date: [] Patient: Fanta Moore 86 y/o F admitted on 08/27/17 for Short of Breath/CHF, Pneumonia. Chief Complaint: [] Date of admission: 08/27/17 12:16 Discharge date: 08/30/17 Primary care physician: Vitaly Brennan Admitting clinician: Riddhi Tong Consults: 08/27/17 10:45 Consult to Physician [CONS] Stat Comment: Consulting Provider: Rdidhi Tong Reason For Exam: Physician to Consult Discharging clinician: [facility] - DS: Meds - Discharge Medications Prescriptions: Albuterol Sulfate [Ventolin] 2.5 mg NEB Q2HP PRN #120 ampul.neb PRN Reason: Shortness Of Breath LORazepam [Ativan] 2 mg PO Q4HP PRN #120 ml PRN Reason: Anxiety morphine 5 - 10 mg PO Q2HP PRN #200 ml PRN Reason: Pain Sennosides/Docusate Sodium [Senna-Docusate Sodium Tablet] 1 each PO BID #60 tab Active and Home Medications: Home Medications Aspirin [Jamal Chewable Aspirin] 81 mg PO HS 08/26/17 [History Confirmed Last Taken Unknown] Ergocalciferol (Vitamin D2) [Vitamin D2] 4,000 unit PO HS 08/26/17 [History Confirmed 08/27/17 Last Taken Unknown] Folic Acid 1 mg PO HS 08/26/17 [History Confirmed 08/27/17 Last Taken Unknown] Levothyroxine [Synthroid] 50 mcg PO DAILY 08/26/17 [History Confirmed 08/27/17 Last Taken Unknown] Rosuvastatin [Crestor] 10 mg PO HS 08/26/17 [History Confirmed 08/27/17 Last Taken Unknown] amLODIPine [Norvasc] 5 mg PO HS 08/26/17 [History Confirmed 08/27/17 Last Taken Unknown] Iron,Carbonyl/Ascorbic Acid [Iron 100-Vitamin C Tablet] 1 each PO Q2 08/27/17 [ History Confirmed 08/27/17 Last Taken Unknown] Medical - DS: Hosp Hospital course: Ms. Moore is a 86 year old female with reported history of COPD, CHF, TIAs, hypertension, peripheral vascular disease, hyperlipidemia, who has severe dementia and lives with her daughter. The patient daughter reported that the patient began to grimace and act like she was having chest pain on the day before of admission. The daughter kept an eye on her and the patient would only intermittently admit to it. Finally the daughter brought her to the emergency room. She was found to be quite anemic, and Dr. padilla decided to transfuse her to improve her oxygen carrying capacity. She was then discharged home. The daughter says her mom continued to have chest pain on and off all night. She wanted to bring her back to the ER this morning, but the patient refused, so the daughter finally called 911. ER evaluation on her second visit did show hypotension, fever, leukocytosis, increased troponin. The daughter is quite adamant that her mother does not want any aggressive care, but would like supportive care for a few days to see how she does. If she does not improve, then she believes she and her other family members will want to move towards comfort care. The patient was admitted to the hospital and was treated with rocephin for possible UTI, she did respond somewhat but continued to have intermittent chest pains, which responded well to ativan / and morphine. The patients family has declined any aggressive interventions, given her advanced dementia and comorbidities. They are wanting to take the patient back home, and manage her home with home hospice. The patients non essential medications have been discontinued, the patient will be discharged home with home hospice, on albuterol prn, morhpine and ativan for pain and anxiety, and sennacot. Nash to be placed before discharge. She will be transferred by an ambulance given her profound weakness/ debility Discharge diagnosis: Dementia, Chest pain, CAD - Time Spent with Patient Total time spent providing and/or coordinating discharge services: Greater than 30 minutes Medical - DS: Exam - Constitutional Vitals: Vital Signs Temp Pulse Resp BP Pulse Ox 08/29/17 20:00 98.2 F 74 18 85/50 97 Intake and Output 08/29/17 08/30/17 08/30/17 21:59 05:59 13:59 Intake Total 400 / 400 Output Total 200 / 200 150 / 150 Balance -200 / -200 250 / 250 Intake: Oral 400 / 400 Output: Void Amount 200 / 200 150 / 150 Additional comments: Constitutional; Afebrile, cooperative, alert, not in distress. Eyes- No icterus, , No periorbital swelling Ears- Ext ear normal, hearing very hard to conversation Neck- Midline trachea, supple Respiratory system: Air Entry equal on both sides, No crackles or wheezing, no rhonchi. CVS- Rate rhythm regular, S1,S2 heard, no gallop, no rub. Abdomen- Soft nontender abdomen, no organomegaly, no tenderness, no guarding or rigidity, LATHE WINDER- AOOx1, moving all extremities, no gross focal deficit noted. Medical - DS: A/P - Patient/Caregiver Discharge Instructions Activity: increase activity as tolerated Diet: Regular Diet (as tolerated) Additional Instructions: Patient to be discharged home with Home Hospice Defer to Hospice for DME needs Patient will need ambulance for transfer from hospital to home. - Follow up Plan Follow up with: Vitaly Brennan ARNP [Primary Care Provider] - Disposition: Hospice - Home Prognosis: Undetermined Rehab Potential: Undetermined I certify that the patient requires SNF services: No Overall status at discharge: patient is not back to baseline
[2017-08-30] MEDS: LEVOTHYROXINE 50 MCG TABLET PO SCH (11:10)
[2017-08-30] MEDS: cefTRIAXone 1 GM VIAL IV SCH (11:10)
[2017-08-30] MEDS: CLOPIDOGREL 75 MG TABLET PO SCH (11:10)
[2017-08-30] MEDS: NICOTINE 21 MG PATCH TOPICAL SCH (12:28)
== END 2017-08-30 12:02 | disposition hospice, home (50) | DRG 194 ==
LOC: ED 08:32 → MEDSUR 12:16
PROVIDERS: ADMIT Internal Medicine; ATTEND Internal Medicine